=== PATIENT | female | born 1950 | race American Indian/Alaskan Native ===

== ENCOUNTER 2019-02-06 13:13 | Emergency (ER) | payer MEDICARE ==
--- NOTE | 2019-02-06 14:17 | Event Note ---
ED Screening Note Date of service: 02/06/19 Time: 14:14 ED Screening Note: 68 y/o female comes in for right foot pain times 2 weeks. Hx/o rheumatoid arthritis. This initial assessment/diagnostic orders/clinical plan/treatment(s) is/are subject to change based on patients health status, clinical progression and re- assessment by fellow clinical providers in the ED. Further treatment and workup at subsequent clinical providers discretion. Patient/guardian urged not to elope from the ED as their condition may be serious if not clinically assessed and managed. Initial orders include:
--- NOTE | 2019-02-06 15:23 | XRay Report ---
Right foot, 2 views INDICATION: Right foot pain and swelling, right great toe pain. COMPARISON: None. IMPRESSION: There is moderate to severe soft tissue swelling on the dorsum of the foot. Bone minera lization is normal. No evidence for fracture, bony erosions or bony destruction. The joint spaces are within normal limits. A small plantar spur is identified. Signer Name: Lennox Anderson Jr, MD Signed: 02/06/2019 3:19 PM Workstation Name: [id number]
[2019-02-06 16:57] VITALS: BP 124/70
--- NOTE | 2019-02-06 17:41 | Emergency Department Report ---
ED Lower Extremity HPI - General Chief Complaint: Pain General Stated Complaint: RT FOOT PAIN Time Seen by Provider: 02/06/19 14:13 Source: patient Mode of arrival: Ambulatory Limitations: No Limitations - History of Present Illness Initial Comments: Mrs. Camacho is a very pleasant healthy 68-year-old female who presents with right foot pain for the past 2 weeks. Pain is in the forefoot. Pain is maximal at joint of the right toe. No previous history of gout. No injury. Her PCP Dr. Chavez prescribed furosemide without relief. Mild swelling of the left foot. However right foot is larger rate than the left. Denies chest pain denies shortness of breath. Past medical history includes diabetes mellitus, hypertension, rheumatoid arthritis MD Complaint: foot injury -: Gradual, week(s) (2) Injury: Foot: Right Type of Injury: unknown Place: home Severity: moderate Improves With: nothing Worsens With: weight bearing, movement, palpation Context: other (no injury) Other Symptoms: other (redness and inflammation of the great toe joint) Associated Symptoms: swelling - Related Data Previous Rx's Medication Instructions Recorded Last Taken Type Colchicine 0.6 mg PO Q2H #3 capsule 02/06/19 Unknown Rx Indomethacin 50 mg PO TID 4 Days #12 capsule 02/06/19 Unknown Rx predniSONE [Deltasone] 20 mg PO QDAY 4 Days #4 tab 02/06/19 Unknown Rx Allergies Allergy/AdvReac Type Severity Reaction Status Date / Time No Known Allergies Allergy Unverified 02/06/19 14:16 ED Review of Systems ROS: Stated complaint: RT FOOT PAIN Other details as noted in HPI Comment: All other systems reviewed and negative Constitutional: denies: fever, malaise Respiratory: denies: cough Cardiovascular: denies: chest pain Skin: change in color ED Past Medical Hx - Past Medical History Previous Medical History?: Yes Hx Hypertension: Yes Hx Heart Attack/AMI: No Hx Congestive Heart Failure: No Hx Diabetes: Yes Hx Deep Vein Thrombosis: No Hx Pulmonary Embolism: No Hx GERD: Yes Hx Liver Disease: No Hx Renal Disease: No Hx of Cancer: No Hx Sickle Cell Disease: No Hx Arthritis: Yes (RA) Hx Headaches / Migraines: No Hx Seizures: No Hx Kidney Stones: No Hx Psychiatric Treatment: No Hx Asthma: No Hx COPD: No Hx Tuberculosis: No Hx Dementia: No Hx HIV: No - Surgical History Hx Appendectomy: Yes Additional Surgical History: 2 csection fibroid tumor removal, bilateral cataracts - Social History Smoking Status: Never Smoker Substance Use Type: None - Medications Home Medications: Home Medications Medication Instructions Recorded Confirmed Last Taken Type Colchicine 0.6 mg PO Q2H #3 capsule 02/06/19 Unknown Rx Indomethacin 50 mg PO TID 4 Days #12 capsule 02/06/19 Unknown Rx predniSONE [Deltasone] 20 mg PO QDAY 4 Days #4 tab 02/06/19 Unknown Rx ED Physical Exam - General Limitations: No Limitations General appearance: alert, in no apparent distress - Head Head exam: Present: atraumatic, normocephalic - ENT ENT exam: Present: mucous membranes moist - Neck Neck exam: Present: normal inspection, full ROM - Respiratory Respiratory exam: Absent: respiratory distress - Extremities Exam Extremities exam: Present: other (bilateral foot swelling right larger than the left, swelling centralized at the dorsum with slight erythema, tenderness of the first MTP) - Neurological Exam Neurological exam: Present: alert, oriented X3 - Psychiatric Psychiatric exam: Present: normal affect, normal mood ED Course Vital Signs 02/06/19 02/06/19 14:13 16:56 Temperature 98.2 F Pulse Rate 76 71 Respiratory 18 16 Rate Blood Pressure 127/69 Blood Pressure 124/70 [Left] O2 Sat by Pulse 98 99 Oximetry ED Lower Extremity MDM - Radiology Data Radiology results: report reviewed Soft tissue swelling of the right foot seen on radiographs according to radiology impression - Medical Decision Making Right foot swelling suspicious for gouty arthropathy, I do not suspect DVT or cellulitis. Neurovascularly intact. Prescribed colchicine and indomethacin and prednisone. Patient understands that diabetic diet is very important while taking prednisone. She will do her best to avoid sugary drinks such as orange juice and sweetened tea Critical care attestation.: If time is entered above; I have spent that time in minutes in the direct care of this critically ill patient, excluding procedure time. ED Disposition Clinical Impression: Foot pain, right, Foot swelling Disposition: - TO HOME OR SELFCARE Is pt being admited?: No Condition: Stable Additional Instructions: Please have your doctor test you for gout. Prescriptions: Colchicine 0.6 mg PO Q2H #3 capsule predniSONE [Deltasone] 20 mg PO QDAY 4 Days #4 tab Indomethacin 50 mg PO TID 4 Days #12 capsule
== END 2019-02-06 16:55 | disposition home or self-care (01) ==
LOC: ED 13:13
DX: M79.671 Pain in right foot (principal); R22.41 Localized swelling, mass and lump, right lower limb; I10 Essential (primary) hypertension; E11.9 Type 2 diabetes mellitus without complications; K21.9 Gastro-esophageal reflux disease without esophagitis; M19.90 Unspecified osteoarthritis, unspecified site; Z90.49 Acquired absence of other specified parts of digestive tract; Z98.890 Other specified postprocedural states